=== PATIENT | male | born 1960 | race Caucasian/White ===

== ENCOUNTER → 2017-10-24 | Outpatient (CLI) | payer OTHER ==
--- NOTE | 2017-10-28 09:09 | MRI ---
EXAM DESCRIPTION: MRI left knee CLINICAL HISTORY: Knee sprain. Pain and swelling COMPARISON: None. TECHNIQUE: Multiplanar, multisequence MR images of the left knee FINDINGS: Complex tear with both radial, and oblique components along the posterior horn extending down to the tibial root attachment with partial root tear. No complete detachment. Mild subluxation of the body of the meniscus. Medial femorotibial chondrosis with chondral thinning and surface irregularity. Marginal grade 4 chondrosis posterior tibia with mild underlying edema. Partial thickness fissuring of the femoral condyle Tear of the posterior horn and body lateral meniscus, inferior articular surface and free edge defect along the posterior horn. Blunting and fraying at the free edge mid body with globular intrameniscal signal throughout . Mild subluxation of the body. Lateral femorotibial chondral thinning and surface irregularity along both sides the joint, chronic full-thickness with articular osteophyte posterior femoral condyle overlying the medial meniscus. Full-thickness along the medial aspect lateral tibia over small region without marrow edema Patellar cartilage fissure along the inferior lateral patella with a tiny underlying subchondral cyst. Mild chondrosis medial patella. Grade 4 chondrosis over the majority of the femoral trochlea with subchondral cortical irregularity and multifocal edema ACL, PCL, MCL and fibular collateral ligaments are intact Biceps femoris, popliteus and iliotibial band tendons are normal. Patellar and quadriceps tendons and tendons of the posterior medial knee are intact Large joint effusion. Mild degenerative synovitis. 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
== END ==
LOC: MRI 07:05
PROVIDERS: ATTEND Family Medicine
DX: S83.242A Other tear of medial meniscus, current injury, left knee, initial encounter (principal); S83.282A Other tear of lateral meniscus, current injury, left knee, initial encounter

== ENCOUNTER → 2020-06-24 | Outpatient (CLI) | payer OTHER | LOC: GMALS 11:30 | PROVIDERS: ATTEND Nurse Practitioner Acute Care | DX: R97.20 Elevated prostate specific antigen [PSA] (principal) ==